=== PATIENT | male | born 1975 | race Caucasian/White ===

== ENCOUNTER 2021-02-15 14:47 | Emergency (ER) | payer OTHER, SELFPAY ==
--- NOTE | ~2021-02-15 | CT_ITS ---
EXAMINATION: CT abdomen pelvis w con DATE: 02/15/2021 16:43 INDICATION: Abdominal pain TECHNIQUE: Computed tomography (CT) of the abdomen and pelvis was performed with 100 mL Omnipaque-350 intravenous contrast. Automated exposure control and iterative reconstruction technique were employe d. The dose-length product was 277.75 mGy-cm. COMPARISON: None FINDINGS: Minimal atelectasis in the lingula and right middle lobe. Heart size is normal. No pericardial or ple ural effusion. Liver, gallbladder, spleen, pancreas, bilateral adrenal glands and kidneys are normal. There are few scattered colonic diverticula without adjacent inflammatory change to suggest divertic ulitis. Small bowel and appendix are normal. Bladder is normal. Large fat-containing left inguinal he rnia which extends into the left hemiscrotum. No free intraperitoneal gas or fluid. No pathologically enlarged abdominal or pelvic lymphadenopathy. Mild lumbar spondylosis. IMPRESSION: 1. No acute intra-abdominal/pelvic process. 2. Large fat-containing left inguinal hernia. Reviewed, dictated and finalized at location A.
[2021-02-15 14:50] VITALS: BP 189/112; PULSE 98; RESP 20; TEMP 36.8; O2SAT 100
[2021-02-15 16:39] LABS: Estimated CRCL calculation 69 ml/min; Estimated Glomerular Filt Rate > 60
[2021-02-15 16:43] LABS: Basophils Absolute Auto 0.2 K/mm3 (0.0-0.1); Basophils Percent Auto 1.2 % (0.2-1.2); Eosinophils Absolute Auto 0.6 K/mm3 (0-0.3); Eosinophils Percent Auto 4.8 % (0-4.4); Hematocrit 48.3 % (42.0-52.0); Hemoglobin 15.7 g/dL (14.0-18.0); Immature Granulocyte Absolute 0.06 K/mm3 (0.00-0.031); Immature Granulocyte Percent A 0.5 % (0-0.5); Lymphocytes Absolute Auto 3.85 K/mm3 (0.9-3.2); Lymphocytes Percent Auto 31.9 % (18.3-44.2); Mean Corpuscular HGB Conc 32.5 g/dl (32-36); Mean Corpuscular Hemoglobin 28.2 pg (26-34); Mean Corpuscular Volume 86.9 fl (80-100); Mean Platelet Volume 8.1 fl (7.4-10.4); Monocytes Absolute Auto 0.8 K/mm3 (0.1-0.6); Monocytes Percent Auto 6.2 % (2.6-8.5); Neutrophils Absolute Auto 6.7 K/mm3 (1.3-6.7); Neutrophils Percent Auto 55.4 % (45.5-73.1); Platelet Count Result 383 k/mm3 (150-375); Red Blood Count 5.56 M/mm3 (4.6-6.20); Red Cell Distribution Width 12.7 % (11.5-14.5); White Blood Count 12.1 K/mm3 (4.5-10.0)
[2021-02-15 16:46] LABS: Add Urine Microscopic? NO; Appearance Urine Clear (Clear); Bilirubin Urine Negative (Negative); Blood Urine Negative (Negative); Color Urine Yellow (Yellow); Glucose Urine UA Negative (Negative); Ketones Urine Negative (Negative); Leukocyte Esterase Ur Negative LEU/UL (Negative); Nitrate Urine Negative (Negative); Protein Urine Negative (Negative); Specific Grav Ur 1.017 (1.001-1.035); Urobilinogen Urine Negative mg/dL (<2.0)
[2021-02-15 16:56] LABS: Alanine Aminotransferase 42 U/L (4-50); Albumin Level 4.3 g/dL (3.5-5.1); Alkaline Phosphatase 78 U/L (38-126); Anion Gap 8 mmol/L (8-16); Aspartate Amino Transferase 35 U/L (17-59); Bilirubin,Total 0.5 mg/dL (0.2-1.3); Blood Urea Nitrogen 13 mg/dL (9-20); Calcium 9.2 mg/dL (8.4-10.2); Carbon Dioxide 27 mmol/L (22-30); Chloride 102 mmol/L (98-107); Estimated CRCL calculation 77 ml/min; Estimated Glomerular Filt Rate > 60; Glucose 109 mg/dL (65-110); Lipase 129 U/L (23-300); Potassium 4.1 mmol/L (3.4-5.0); Sodium 137 mmol/L (137-145)
--- NOTE | 2021-02-15 17:07 | ED.GENADULT ---
HPI - General Adult General Chief complaint: Abdominal Pain Stated complaint: hernia Time Seen by Provider: 02/15/21 14:51 Source: patient, family and RN notes reviewed Mode of arrival: ambulatory Limitations: no limitations History of Present Illness HPI narrative: Patient is a 45-year-old male who presents to emergency department for evaluation of mild belly discomfort notes history of left inguinal hernia for 10 years thought it may be related to his patient has no primary care doctor has not been seen for this complaint denies any fever chills nausea vomiting constipation or diarrhea or any testicular pain Related Data Allergies Allergy/AdvReac Type Severity Reaction Status Date / Time No Known Allergies Allergy Unverified 08/29/14 11:48 Review of Systems Review of Systems: All systems reviewed & are unremarkable except as noted in HPI and below PMFSH Social History Social History (Updated 02/15/21 @ 17:10 by Daniel Carias PA-C) Smoking status: Current every day smoker Gender identity (if verbalized by the patient): Male Exam Narrative: Exam Narrative: GENERAL: Well-appearing, well-nourished, and in no acute distress. HEAD: Normocephalic, atraumatic. EYES: PERRLA and EOMI. ENT: Nares clear, no rhinorrhea or epistaxis. Mucous membranes moist. CHEST: Clear to auscultation. No respiratory distress. No wheezes rales or rhonchi HEART: Regular rate and rhythm. No murmur heard. Normal peripheral pulses. ABDOMEN: Soft, nontender, nondistended. Left inguinal hernia into the scrotum EXTREMITIES: Normal range of motion. No edema. SKIN: Warm, dry, no rash. NEURO: No focal deficits. Alert and oriented x3. PSYCH: Normal mood and affect. Course Course Emergency Course: Patient evaluated the emergency department will be discharged home with surgery follow-up and primary care given reasons to return made aware of his blood work and case findings and felt appropriate for outpatient reevaluation provided with reasons to return Vital Signs Vital signs: Vital Signs Temperature 98.2 F 02/15/21 14:50 Pulse Rate 98 02/15/21 14:50 Respiratory Rate 20 02/15/21 14:50 Blood Pressure 189/112 H 02/15/21 14:50 Pulse Oximetry 100 02/15/21 14:50 Temperature 98.2 F 02/15/21 14:50 Pulse Rate 98 02/15/21 14:50 Respiratory Rate 20 02/15/21 14:50 Blood Pressure 189/112 H 02/15/21 14:50 Pulse Oximetry 100 02/15/21 14:50 Medical Decision Making MDM Narrative Medical decision making narrative: ABCs and vital signs intact and stable presented with abdominal pain and for evaluation of his scrotal hernia no concerning findings will be discharged home with outpatient follow-up with primary care and general surgery Vital Signs Vital Signs: Vital Signs Temperature 98.2 F 02/15/21 14:50 Pulse Rate 98 02/15/21 14:50 Respiratory Rate 20 02/15/21 14:50 Blood Pressure 189/112 H 02/15/21 14:50 Pulse Oximetry 100 02/15/21 14:50 Temperature 98.2 F 02/15/21 14:50 Pulse Rate 98 02/15/21 14:50 Respiratory Rate 20 02/15/21 14:50 Blood Pressure 189/112 H 02/15/21 14:50 Pulse Oximetry 100 02/15/21 14:50 Lab Data Result diagrams: 02/15/21 16:30 02/15/21 16:36 Labs: Lab Results 02/15/21 02/15/21 02/15/21 Range/Units 16:30 16:30 16:30 WBC 12.1 H (4.5-10.0) K/mm3 RBC 5.56 (4.6-6.20) M/mm3 Hgb 15.7 (14.0-18.0) g/dL Hct 48.3 (42.0-52.0) % MCV 86.9 (80-100) fl MCH 28.2 (26-34) pg MCHC 32.5 (32-36) g/dl RDW 12.7 (11.5-14.5) % Plt Count 383 H (150-375) k/mm3 MPV 8.1 (7.4-10.4) fl Immature Gran % (Auto) 0.5 (0-0.5) % Neut % (Auto) 55.4 (45.5-73.1) % Lymph % (Auto) 31.9 (18.3-44.2) % Preston % (Auto) 6.2 (2.6-8.5) % Eos % (Auto) 4.8 H (0-4.4) % Baso % (Auto) 1.2 (0.2-1.2) % Lymph # (Auto) 3.85 H (0.9-3.2) K/mm3 Preston # (Auto) 0.8 H (0.1-0.6) K/mm3 Eos # (Aut
[2021-02-15 17:31] VITALS: BP 145/90; PULSE 88; RESP 16; O2SAT 97
== END 2021-02-15 17:31 | disposition home or self-care (01) ==
PROVIDERS: Emergency Medicine Emergency Medical Services; Emergency Provider Emergency Medicine
DX: K40.90 Unilateral inguinal hernia, without obstruction or gangrene, not specified as recurrent (principal); F17.200 Nicotine dependence, unspecified, uncomplicated
CPT/HCPCS: 74177; 80053; 81003; 83690; 85025; 99284; Q9967

== ENCOUNTER 2021-02-24 16:53 | Outpatient (CLI) | payer OTHER, SELFPAY ==
--- NOTE | ~2021-02-24 | XR_ITS ---
EXAMINATION: XR chest 2V EXAM DATE: 02/24/2021 17:25 INDICATION: Hypertension. TECHNIQUE: Frontal and lateral projections of the chest obtained and reviewed. There is no prior kristen dy for comparison. FINDINGS: The lungs are clear. There are no pleural effusions. The cardiomediastinal silhouette is within normal limits. There is no pneumothorax suspected. The bones and soft tissues are unremarkab le. IMPRESSION: No acute cardiopulmonary findings. Reviewed, dictated and finalized at location B.
[2021-02-24 17:15] LABS: Hematocrit 48.9 % (42.0-52.0); Hemoglobin 15.9 g/dL (14.0-18.0); Mean Corpuscular HGB Conc 32.5 g/dl (32-36); Mean Corpuscular Hemoglobin 28.1 pg (26-34); Mean Corpuscular Volume 86.5 fl (80-100); Platelet Count Result 382 k/mm3 (150-375); Red Blood Count 5.65 M/mm3 (4.6-6.20); Red Cell Distribution Width 12.9 % (11.5-14.5); White Blood Count 10.8 K/mm3 (4.5-10.0)
[2021-02-24 17:17] LABS: Add Urine Microscopic? NO; Appearance Urine Clear (Clear); Bilirubin Urine Negative (Negative); Blood Urine Negative (Negative); Color Urine Yellow (Yellow); Glucose Urine UA Negative (Negative); Ketones Urine Negative (Negative); Leukocyte Esterase Ur Negative LEU/UL (NEGATIVE); Nitrate Urine Negative (Negative); Protein Urine Negative (Negative); Specific Grav Ur 1.026 (1.001-1.035); Urobilinogen Urine Negative mg/dL (<2.0)
[2021-02-24 17:24] LABS: Alanine Aminotransferase 33 U/L (4-50); Albumin Level 4.3 g/dL (3.5-5.1); Alkaline Phosphatase 75 U/L (38-126); Anion Gap 8 mmol/L (8-16); Aspartate Amino Transferase 30 U/L (17-59); Bilirubin,Total 0.4 mg/dL (0.2-1.3); Blood Urea Nitrogen 16 mg/dL (9-20); Calcium 9.2 mg/dL (8.4-10.2); Carbon Dioxide 27 mmol/L (22-30); Chloride 103 mmol/L (98-107); Cholesterol 183 mg/dL (0-200); Estimated Glomerular Filt Rate > 60; Glucose 91 mg/dL (65-110); HDL Direct 46 mg/dL; Potassium 4.2 mmol/L (3.4-5.0); Sodium 138 mmol/L (137-145); Triglycerides 133 mg/dL (<150)
[2021-02-24 17:36] LABS: LDL Cholesterol Direct 100 mg/dL
[2021-02-24 17:55] LABS: Prostate Specific Antigen 0.7 ng/mL (< OR = 4.0)
[2021-02-24 18:04] LABS: Free T4 Free Thyroxine 0.88 ng/mL (0.78-2.19); Vitamin D 25 Hydroxy 29.5 ng/mL
== END 2021-02-24 16:54 | disposition home or self-care (01) ==
PROVIDERS: PCP Emergency Medicine; Visit Provider Emergency Medicine
DX: Z12.5 Encounter for screening for malignant neoplasm of prostate (principal); Z72.0 Tobacco use; I10 Essential (primary) hypertension
CPT/HCPCS: 36415; 71046; 80053; 80061; 81003; 82306; 84153; 84439; 84443; 85027

== ENCOUNTER 2021-03-04 14:48 | Outpatient (CLI) | payer OTHER, SELFPAY ==
--- NOTE | ~2021-03-04 | US_ITS ---
EXAMINATION: US scrotum doppler DATE: 03/04/2021 15:17 INDICATION: Unilateral inguinal hernia without obstruction TECHNIQUE: Testicular sonogram utilizing grayscale and Doppler COMPARISON: CT, 02/15/2021 FINDINGS: The right testis measures 3.6 x 1.8 x 3.6 cm. The left testis measures 2.9 x 1.8 x 3.5 cm. There is normal vascular flow to both testes. The right epididymis is normal with normal vascular laurie w. The left epididymis is normal with normal vascular flow. There is no varicocele or hydrocele. Ther e is a large left inguinal hernia containing fat extends into the left scrotum. IMPRESSION: 1. Normal testes. 2. Large left inguinal hernia containing fat extending into the left scrotum. Reviewed, dictated and finalized at location A.
== END 2021-03-04 14:49 ==
LOC: MICIMG 14:49
PROVIDERS: PCP Surgery; Visit Provider Surgery
DX: K40.90 Unilateral inguinal hernia, without obstruction or gangrene, not specified as recurrent (principal)
CPT/HCPCS: 76870; 93976

== ENCOUNTER → 2021-03-20 00:50 | Outpatient (CLI) | payer OTHER, SELFPAY ==
[2021-03-20 20:12] LABS: SARS-CoV-2 RNA PCR Negative
== END ==
PROVIDERS: PCP Emergency Medicine; Visit Provider Surgery
DX: Z01.812 Encounter for preprocedural laboratory examination (principal); Z20.822 Contact with and (suspected) exposure to COVID-19
CPT/HCPCS: C9803; U0003; U0005

== ENCOUNTER 2021-03-23 03:05 | Day surgery (SDC) | payer OTHER, SELFPAY ==
[2021-03-18 15:16] VITALS: BMI 21.2
[2021-03-23] VITALS (9 sets, daily range): BP systolic 127–156; BP diastolic 70–109; PULSE 65–99; RESP 14–16; TEMP 37; O2SAT 97–100
--- NOTE | 2021-03-23 11:43 | WPDANESEPPF ---
Anes - Initial Pre Proc Eval Procedure: Operation Date: 03/23/21 13:30 Proposed Procedures p Open Left Inguinal Hernia Repair, with Mesh - Jens Chowdary MD Date/Time: 03/23/21 11:43 Surgeon: Jens Chowdary MD Pre Op Diagnosis: Large Left inguinal hernia Patient Data Age: 45 Gender: M Height: 1.6 m Weight: 54.5 kg Allergies Allergy/AdvReac Type Severity Reaction Status Date / Time No Known Allergies Allergy Verified 03/23/21 11:37 Home Medications Medication Instructions Recorded Confirmed Type lisinopril 20 mg PO DAILY 03/18/21 03/23/21 History Patient hx anesthesia problems: none Family hx anesthesia problems: none [facility] Past Medical History Medical History (Updated 03/23/21 @ 11:44 by Enoc Rosales DO) Hypertension Surgical History Surgical History (Updated 02/19/21 @ 14:49 by Ketty Villarreal MA) History of kidney surgery Family History Family History (Updated 02/19/21 @ 14:29 by Ketty Villarreal MA) Unknown Cancer Social History Social History Smoking status: Current every day smoker Tobacco type: cigarettes Alcohol intake: never Substance use: never Additional occupation/education comments: [employer] Gender identity (if verbalized by the patient): Male Spiritual care concerns: No Anes - Eval Final PreProcedure Day of Procedure 03/23/21 11:43 Patient weight: normal Heart: regular rate and rhythm Lungs: clear to auscultation and normal air movement Airway: Mallampati scale class II and special considerations poor dentition Neurological: alert and oriented Last oral intake: >/= 8 hours ASA classification: III Emergent: no Anesthetic plan: proceed Anesthesia type and monitoring: general GIVS and standard monitoring Informed Consent: The patient's anesthetic plan and its attendant risks and benefits were discussed with the patient/family/POA. Questions were solicited and answers provided to the satisfaction of the patient/family/POA.
[2021-03-23] MEDS: ACETAMINOPHEN 500 MG TABLET 1000 MG PO (11:44)
[2021-03-23] MEDS: LACTATED RINGERS 1,000 ML 30 ML IV CONT ×3 (11:50→16:40)
[2021-03-23] MEDS: KETOROLAC 15 MG/ML VIAL (*BKC) IV PUSH (11:51)
--- NOTE | 2021-03-23 12:26 | PM.HPGS ---
History of Present Illness History of Present Illness Consent: Risks, benefits, and alternatives have been discussed and questions answered. Patient agrees to proceed with procedure. Chief complaint: Large Left inguinal hernia Narrative: Tony Aguilar is a 45 year old male that presented to the office after a recent visit to [facility] ER on 02/15/21 for an evaluation of a left inguinal hernia. Patient had a CT of the abdomen and pelvis with contrast that showed a large fat-containing left inguinal hernia. Patient reports that he has known about the hernia for many years and he doesn't really have pain nor does the hernia bother him, but he thought it was time to get the hernia checked out. His best guess is that he has had the hernia 10+ years. He reports he smokes about a pack of cigarettes a day. Patient has never had a colonoscopy. He reports that he has received his first COVID 19 vaccine on 02/16/21 (Moderna) he is set to have the next one is on March 16 2021. Patient reports he had surgery on his kidney when he was 1 years old. He is unsure what was exactly done since he was so young. He reports he has regular BMs daily. He reports he does have to do heavy lifting for work. Occasionally will have pain when doing this. Review of Systems Constitutional: Constitutional: Reports no additional constitutional complaints and Denies frequent falls Eyes: Eyes: Reports as per HPI ENT: Reports Normal hearing present, Denies dizziness and Reports other (Mucous membranes moist.) Cardiovascular: Cardiovascular: Denies chest pain, Denies palpitations, Denies dyspnea and Denies dyspnea on exertion Respiratory: Respiratory: Denies hemoptysis, Denies dyspnea, Denies dyspnea on exertion and Denies wheezing Gastrointestinal: Gastrointestinal: Reports no additional gastrointestinal complaints Genitourinary: Genitourinary: Denies hematuria, Denies nocturia and Denies urinary frequency Musculoskeletal: Musculoskeletal: Denies deformity and Reports other ( no clubbing,cyanosis, or edema) Integumentary/Breasts: Skin/Breast: Denies new lesions, Denies rash and Denies unusual bruising Neurologic: Reports Normal hearing present, Denies dizziness, Denies frequent falls, Denies memory loss and Denies seizure-like activity Psychiatric: Psychiatric: Denies memory loss and Reports other ( normal mood and mental status) Endocrine: Endocrine: Denies cold intolerance and Denies palpitations Hematologic/Lymphatic: Hematologic/Lymphatic: Denies easy bleeding and Denies easy bruising Allergic/Immunologic: Allergic/Immunologic: Denies wheezing and Reports other ( no lymphadenopathy) [facility] Past Medical History Medical History (Updated 03/23/21 @ 12:31 by Jens Chowdary MD) Hypertension Surgical History Surgical History History of kidney surgery Family History Family History Unknown Cancer Social History Social History Smoking status: Current every day smoker Tobacco type: cigarettes Alcohol intake: never Substance use: never Additional occupation/education comments: [employer] Gender identity (if verbalized by the patient): Male Spiritual care concerns: No Meds Home Medications and Allergies Home Medications Medication Instructions Recorded Confirmed Type lisinopril 20 mg PO DAILY 03/18/21 03/23/21 History Allergies Allergy/AdvReac Type Severity Reaction Status Date / Time No Known Allergies Allergy Verified 03/23/21 11:37 Vital Signs Vital Signs - 24 hr 03/23/21 11:27 Temperature 37.0 C Pulse Rate 99 Respiratory Rate 16 Blood Pressure 129/89 Pulse Oximetry 100 Exam Const: General: cooperative, no acute distress, well developed, alert and awake Nutritional Appearance: well nourished Orientation/consciousness
[2021-03-23] MEDS: ceFAZolin 2 GM/D5W 50 ML 2 GM/50 ML BAG IVPB (13:50)
[2021-03-23] MEDS: BUPIVACAINE/EPINEPHRINE 0.5% 30 ML VIAL 10 ML INFILTRATE (13:50)
--- NOTE | 2021-03-23 13:56 | WPDHPUPDATE1 ---
History and Physical Update Update Date/Time: 03/23/21 13:56 History and Physical has been reviewed, including an updated exam of the patient. There are NO changes in the patient's condition. Risks, benefits, and alternatives have been discussed and questions answered. Patient agrees to proceed with procedure.
[2021-03-23] MEDS: LIDOCAINE HCL 1% LOCAL INJ 20 ML VIAL 7.5 ML INFILTRATE (16:05)
[2021-03-23] MEDS: BUPIVACAINE/EPINEPHRINE 0.5% 10 ML VIAL 7.5 ML INFILTRATE (16:07)
--- NOTE | 2021-03-23 16:43 | W.PM.PROC2 ---
Procedure Note - Detailed Date of Procedure 03/23/21 Pre-op Diagnosis Large Incarcerated Left inguinal hernia Post-op Diagnosis same (Indirect) Procedure Performed Open incarcerated left inguinal hernia repair with mesh Surgeon Jens Chowdary MD Radiologic Tech [employer] WHITAKER, OR 1st assist Anesthesia general Indications See H and P Patient has a enlarging left inguinal hernia that is causing him increased pain and bulging. It is non reducible. Findings A large indirect inguinal hernia with incarcerated omentum. Because the omentum was so bulky I did need to excise some omentum in order to reduce it. Description of Procedure The patient was placed in the supine position on the operating room table. After induction of adequate GIVS anesthesia by [facility] Anesthesia staff, we carefully prepped the entire abdomen and scrotum with chlorhexidine. One sterile towel was placed underneath the scrotum. Four towels were placed around the left lower quadrant. Following this, a time-out was performed with the surgical team and the patient's surgical procedure and site was confirmed. We then carefully outlined a curvilinear incision in the left groin area and a curvilinear incision was made after introducing a mixture of local anesthetic, using 0.5% Marcaine with epinephrine and 1% Xylocaine plain as both an ilioinguinal nerve block and at the incision site with a 25 gauge needle. Following this, I carefully made the incision, and carried it down through the subcutaneous tissue. David's fascia was incised and then we identified the external oblique aponeurosis and the external ring. Following this, the same mixture of local anesthetic was infiltrated underneath the external oblique aponeurosis and this was split in the direction of it's fibers with a #15 blade initially and then using metzenbaum scissors. I then opened the external oblique through the external ring and incised this somewhat posteriorly and superiorly. The ilioinguinal nerve was very small and thin out and because of his very large hernia I decided to sacrifice it at the level of the internal ring. This was cut so that we would eventually have a neuropathy issue.. Then I carefully and meticulously dissected out the cord structures at the level of the pubic tubercle. I then surrounded these structures at the level of pubic tubercle and placed a Lutz drain around them. The fairly large indirect inguinal hernia sac was noted to extend along the cord structures down into the upper and mid scrotum creating a fairly wide stretched out external ring. I then carefully dissected the hernia sac and tried to bring it up and off of the cord tissues, and out of the incision. However, because of its size it was not easily from the cord structures. Therefore on the anterior medial border I decided to open the hernia sac. We carefully dissected the layers and cremasteric tissues off the hernia sac on both the anterior medial border of the sac and cord structures approximately 4 cm distal to the internal ring, and then eventually opened the hernia sac. I opened the sac along its midportion a good 4 cm distal to the internal ring. There was a large amount of omentum within it. I tried to reduce this. However, some areas were scarred, thickened and there was more than a 20 x 5 x 8 cm area of omentum in the indirect hernia sac. Therefore, I decided to excise some of the omentum. I did this by carefully choosing sites where we could, without bleeding, come across the omentum sequentially with hemostat clamps. The portion distal amputated after placing hemostats distal and then cutting between. Then 2-0 Vicryl ties were used to tie off all these hemostats on the patient's side. Then those on the omentum side which was coming out were left in place. An approximate 10 x 15 x 5 cm area of omentum was excised and passed off the field as specimen. Following this the omentum was ab
== END 2021-03-23 18:10 | disposition home or self-care (01) ==
PROVIDERS: PCP Emergency Medicine; Visit Provider Surgery
PROC: (CPT 49507; principal; 2021-03-23 13:30)
DX: K40.30 Unilateral inguinal hernia, with obstruction, without gangrene, not specified as recurrent (principal); K66.8 Other specified disorders of peritoneum; I10 Essential (primary) hypertension; F17.210 Nicotine dependence, cigarettes, uncomplicated
CPT/HCPCS: 49507; 88302; A9270; C1781; C9803; J0690; J1100; J1885; J2250; J2405; J2704; J3010; J7120; U0003; U0005

== ENCOUNTER 2021-04-29 15:02 | Outpatient (CLI) | payer OTHER, SELFPAY ==
[2021-04-29 15:27] LABS: Basophils Absolute Auto 0.2 K/mm3 (0.0-0.1); Basophils Percent Auto 1.5 % (0.2-1.2); Eosinophils Absolute Auto 0.6 K/mm3 (0-0.3); Eosinophils Percent Auto 6.4 % (0-4.4); Hematocrit 45.7 % (42.0-52.0); Hemoglobin 15.2 g/dL (14.0-18.0); Immature Granulocyte Absolute 0.04 K/mm3 (0.00-0.031); Immature Granulocyte Percent A 0.4 % (0-0.5); Mean Corpuscular HGB Conc 33.3 g/dl (32-36); Mean Corpuscular Hemoglobin 28.6 pg (26-34); Mean Corpuscular Volume 85.9 fl (80-100); Mean Platelet Volume 7.9 fl (7.4-10.4); Monocytes Absolute Auto 0.8 K/mm3 (0.1-0.6); Monocytes Percent Auto 7.6 % (2.6-8.5); Neutrophils Absolute Auto 5.2 K/mm3 (1.3-6.7); Neutrophils Percent Auto 52.1 % (45.5-73.1); Platelet Count Result 448 k/mm3 (150-375); Red Blood Count 5.32 M/mm3 (4.6-6.20); Red Cell Distribution Width 12.9 % (11.5-14.5)
[2021-04-29 16:50] LABS: Erythrocyte Sedimentation Rate 9 mm/hr (0-20)
[2021-04-29 16:56] LABS: Alanine Aminotransferase 30 U/L (4-50); Albumin Level 4.7 g/dL (3.5-5.1); Alkaline Phosphatase 85 U/L (38-126); Anion Gap 9 mmol/L (8-16); Aspartate Amino Transferase 58 U/L (17-59); Bilirubin,Total 0.4 mg/dL (0.2-1.3); Blood Urea Nitrogen 15 mg/dL (9-20); CRP 0.9 mg/dL (<1.0); Calcium 9.2 mg/dL (8.4-10.2); Carbon Dioxide 27 mmol/L (22-30); Chloride 104 mmol/L (98-107); Estimated Glomerular Filt Rate > 60; Glucose 100 mg/dL (65-110); Potassium 4.2 mmol/L (3.4-5.0); Sodium 140 mmol/L (137-145)
== END 2021-04-29 15:03 | disposition home or self-care (01) ==
LOC: ANHLAB 15:04
PROVIDERS: PCP Emergency Medicine; Visit Provider Internal Medicine Hematology & Oncology
DX: R79.89 Other specified abnormal findings of blood chemistry (principal)
CPT/HCPCS: 36415; 80053; 82728; 85025; 85652; 86140

== ENCOUNTER 2023-07-19 09:31 | Emergency (ER) | payer SELFPAY ==
[2023-07-19 09:41] VITALS: BP 172/99; PULSE 99; RESP 18; TEMP 37.2; O2SAT 96
--- NOTE | 2023-07-19 10:47 | ED.GENADULT ---
HPI - General Adult General Chief complaint: Upper Respiratory Infection Stated complaint: cough/aches/fever Source: patient Mode of arrival: ambulatory Limitations: no limitations History of Present Illness HPI narrative: Patient presents for evaluation of sick symptoms since yesterday. Symptoms include headache, cough, generalized body aches, mild SOB and chills. No fever, nausea, vomiting, diarrhea or chest pain. His girlfriend tested positive for influenza a 2 days ago. He smokes 1 pack per day. He has been taking some [id number] cough and cold medicine. No additional complaints or concerns. Related Data Allergies Allergy/AdvReac Type Severity Reaction Status Date / Time No Known Allergies Allergy Verified 09/30/21 08:04 Review of Systems Review of Systems: CONSTITUTIONAL: Reports chills. Denies fever or sweats. EYES: Denies visual changes, redness, or discharge. ENT: Denies rhinorrhea, congestion, sore throat, or otalgia. CARDIOVASCULAR: Denies chest pain, palpitations, or edema. RESPIRATORY: Reports cough and mild shortness of breath. GASTROINTESTINAL: Denies abdominal pain, nausea, vomiting, or diarrhea. GENITOURINARY: Denies dysuria or hematuria. SKIN: Denies rash or itching. MUSCULOSKELETAL: Reports generalized body NEUROLOGIC: Reports headache. Denies numbness, dizziness, or weakness. PSYCHIATRIC: Denies anxiety or depression. 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 HEAD: Normocephalic, atraumatic. EYES: PERRLA and EOMI. ENT: Nares clear, no rhinorrhea or epistaxis. Mucous membranes moist. Oropharynx without tonsillar hypertrophy exudate or other lesions. Bilateral TMs pearly feldman nonbulging NECK: Supple. No adenopathy or masses. No carotid bruits or JVD CHEST: Mild wheezing noted in bilateral lung mcleod posteriorly. Occasional cough present on exam. HEART: Regular rate and rhythm. No murmur heard. Normal peripheral pulses. ABDOMEN: Soft, nontender, nondistended, normal active bowel sounds. EXTREMITIES: Normal range of motion. No edema. SKIN: Warm, dry, no rash. NEURO: No focal deficits. Alert and oriented x3. PSYCH: Normal mood and affect. Course Course Emergency Course: This is a 48-year-old male who presented for evaluation of sick symptoms after a recent influenza exposure. Though his influenza today is negative, I believe he indeed does have influenza. Will treat with Tamiflu and prednisone. Advised on smoking cessation. [id number] agents for symptom management. Follow up with primary provider. Go to the ER for worsening symptoms. Patient in agreement with plan of care. Level of Care: Express Care Visit Vital Signs Vital signs: Vital Signs Temperature 37.2 C 07/19/23 09:41 Pulse Rate 99 07/19/23 09:41 Respiratory Rate 18 07/19/23 09:41 Blood Pressure 172/99 H 07/19/23 09:41 Pulse Oximetry 96
== END 2023-07-19 10:51 | disposition home or self-care (01) ==
PROVIDERS: Emergency Provider Nurse Practitioner
DX: B34.9 Viral infection, unspecified (principal); I10 Essential (primary) hypertension; F17.210 Nicotine dependence, cigarettes, uncomplicated
CPT/HCPCS: 87804; 99213; G0463